=== PATIENT | male | born 1995 | race Caucasian/White ===

== ENCOUNTER → 2021-12-11 | Outpatient (CLI) | payer SELFPAY ==
[2021-12-11 09:48] LABS: ALBUMIN 4.4 g/dL (3.5-5.0); POTASSIUM 3.8 mmol/L (3.5-5.1)
[2021-12-11 09:50] LABS: CALCIUM 9.9 mg/dL (8.3-10.5)
[2021-12-11 09:51] LABS: TOTAL PROTEIN 7.5 g/dL (6.4-8.3)
[2021-12-11 09:53] LABS: TOTAL BILIRUBIN 0.5 mg/dL (0.2-1.2)
== END ==
LOC: RAD 09:00
PROVIDERS: Registered Nurse
DX: F07.81 Postconcussional syndrome (principal)